=== PATIENT | male | born 1995 | race American Indian/Alaskan Native ===

== ENCOUNTER 2018-12-09 11:00 | Emergency (ER) | payer OTHER ==
[2018-12-09 11:08] VITALS: BP 148/76
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
--- NOTE | 2018-12-09 13:17 | XRay Report ---
Left great toe. History: First MP joint pain. Findings: Mild hallux valgus. Articular surfaces appears unremarkable. No soft tissue swelling or calcification. The first tarsometatarsal joint appears normal. No periosteal reaction or soft tissue calcification. Impression: Mild hallux valgus.
== END 2018-12-09 14:04 | disposition home or self-care (01) ==
LOC: ED 11:00
DX: M54.5 Low back pain (principal); M79.674 Pain in right toe(s); V49.49XA Driver injured in collision with other motor vehicles in traffic accident, initial encounter; Y93.89 Activity, other specified; Y92.488 Other paved roadways as the place of occurrence of the external cause; Y99.8 Other external cause status